=== PATIENT | male | born 1965 | race Caucasian/White ===

== ENCOUNTER 2016-12-31 19:22 | Emergency (ER) | payer OTHER ==
[~2016-12-31] VITALS: Ht 175.3 cm; Wt 96.2 kg
[2016-12-31] MEDS ORDERED: SUBOXONE 8 MG-1 EAC3 SL (19:29)
[2016-12-31] MEDS ORDERED: LISINOPRIL10 MG PO (19:30)
[2016-12-31] MEDS ORDERED: LORAZEPAM 22 MG/1 ML IM (19:30)
[2016-12-31] MEDS ORDERED: ATENOLOL 100MG100 MG PO (19:30)
[2016-12-31 20:32] VITALS: BP 115/68
== END 2016-12-31 21:20 | disposition left against medical advice (07) ==
LOC: ER 19:22
DX: F10.120 Alcohol abuse with intoxication, uncomplicated (principal)

== ENCOUNTER 2017-01-23 21:18 | Emergency (ER) | payer OTHER ==
[~2017-01-23] VITALS: Ht 175.3 cm; Wt 90.7 kg
[~2017-01-23 21:18] MED LIST: ATENOLOL 100MG100 MG PO; LISINOPRIL10 MG PO; LORAZEPAM 22 MG/1 ML IM; SUBOXONE 8 MG-1 EAC3 SL
[2017-01-24 05:16] VITALS: BP 136/65
== END 2017-01-24 05:18 | disposition home or self-care (01) ==
LOC: ER 21:18
DX: F10.129 Alcohol abuse with intoxication, unspecified (principal); G89.29 Other chronic pain; Y90.9 Presence of alcohol in blood, level not specified